=== PATIENT | male | born 1940 | race Caucasian/White ===

== ENCOUNTER 2018-08-22 09:56 | Emergency (ER) | payer MEDICARE ==
[2018-08-22] MEDS ORDERED: Aspirin Chewable 81 MG TAB ONE (10:27)
[2018-08-22 10:35] LABS: #Basophils 0.1 thou/uL (0.0-0.2); #Eosinphils 0.1 thou/uL (0.0-0.7); #Lymphocytes 1.2 thou/uL (1.20-3.40); #Monocytes 0.6 thou/uL (0.11-0.59); #Neutrophils 5.7 thou/uL (1.40-6.50); %Basophils 1.8 % (0.0-1.0); %Eosinophils 1.2 % (0.0-10.0); %Lymphocytes 15.2 % (21.0-51.0); %Monocytes 7.6 % (0.0-10.0); %Neutrophils 74.2 % (42.0-75.0); Mean Corpuscular Hemoglobin 30.3 pg (27.0-31.0); Mean Corpuscular Volume 94.7 fL (78.0-98.0); Mean Platelet Volume 9.3 fL (7.4-10.4); Platelet Count 162 thou/uL (130-400); RBC Distribution Width 12.5 % (11.5-14.5); White Blood Cell (WBC) Count 7.7 thou/uL (4.8-10.8)
[2018-08-22 10:49] LABS: ALT (SGPT) 19 U/L (8-55); AST (SGOT) 26 U/L (5-34); Albumin 4.1 g/dL (3.4-4.8); Alkaline Phosphatase 61 U/L (40-150); Anion Gap 16 mmol/L (10-20); BUN (Urea Nitrogen) 11 mg/dL (8.4-25.7); Bilirubin, Total 0.9 mg/dL (0.2-1.2); Calc. Creatinine Clearance 0 mL/min (70-130); Calcium 9.4 mg/dL (7.8-10.44); Carbon Dioxide 22 mmol/L (23-31); Chloride 102 mmol/L (98-107); Estimated GFR-MDRD 69; Globulin 2.9 g/dL (2.4-3.5); Glucose 112 mg/dL (83-110); Potassium 4.3 mmol/L (3.5-5.1); Sodium 136 mmol/L (136-145)
--- NOTE | 2018-08-22 10:56 | RAD ---
EXAM: CHEST ONE VIEW: History: Difficulty breathing. Cough and congestion. Comparison: 03-16-15 FINDINGS: Post underlying sternotomy with stable cardiomegaly and left ICD. Mild bilateral vascular congestion with small bilateral pleural effusions. No confluent lobar pneumonia. Healed right rib fractures. IMPRESSION: Small bilateral pleural effusions. Mild vascular congestion. Stable cardiopulmonary. No confluent pne umonia. POS: [facility]
[2018-08-22 11:17] LABS: CKMB 2.4 ng/mL (0-6.6)
[2018-08-22] MEDS ORDERED: Furosemide 40 MG/4 ML VIAL ONE ×2 (11:38→11:39)
== END 2018-08-22 13:13 | disposition short-term general hospital (02) ==
LOC: NAV ERS 09:56
DX: I11.0 Hypertensive heart disease with heart failure (principal); I50.9 Heart failure, unspecified; R79.89 Other specified abnormal findings of blood chemistry; F17.210 Nicotine dependence, cigarettes, uncomplicated
CPT/HCPCS: 71045; 80053; 82553; 83880; 84484; 85025; 93005; 96374; J1940; J7620

== ENCOUNTER 2020-01-06 23:02 | Emergency (ER) | payer MEDICARE ==
[2020-01-07] MEDS ORDERED: Tamsulosin HCl 0.4 MG CAP ONE (00:04)
== END 2020-01-07 00:25 | disposition home or self-care (01) ==
LOC: NAV ERS 23:02
DX: R33.9 Retention of urine, unspecified (principal); I11.0 Hypertensive heart disease with heart failure; I50.9 Heart failure, unspecified; I25.2 Old myocardial infarction; F17.210 Nicotine dependence, cigarettes, uncomplicated
CPT/HCPCS: 51703; 51798

== ENCOUNTER 2020-09-17 09:27 | Emergency (ER) | payer MEDICARE ==
[2020-09-17 10:31] LABS: #Basophils 0.1 thou/uL (0.0-0.2); #Eosinphils 0.1 thou/uL (0.0-0.7); #Lymphocytes 0.6 thou/uL (1.20-3.40); #Monocytes 1.1 thou/uL (0.11-0.59); %Basophils 0.7 % (0.0-1.0); %Eosinophils 0.5 % (0.0-10.0); %Lymphocytes 4.9 % (21.0-51.0); %Monocytes 8.4 % (0.0-10.0); %Neutrophils 85.5 % (42.0-75.0); Hemoglobin 16.3 g/dL (14.0-18.0); Mean Corpuscular HGB CONC 32.9 g/dL (32.0-36.0); Mean Corpuscular Hemoglobin 30.3 pg (27.0-31.0); Mean Platelet Volume 6.8 fL (7.4-10.4); Platelet Count 186 thou/uL (130-400); RBC Distribution Width 12.1 % (11.5-14.5); White Blood Cell (WBC) Count 12.8 thou/uL (4.8-10.8)
[2020-09-17] MEDS ORDERED: Sodium Chloride 0.9% 500 ML ONE ×2 (10:44→12:55)
[2020-09-17 10:51] LABS: ALT (SGPT) 12 U/L (8-55); AST (SGOT) 20 U/L (5-34); Albumin 3.7 g/dL (3.4-4.8); Alkaline Phosphatase 60 U/L (40-110); Anion Gap 20 mmol/L (10-20); BUN (Urea Nitrogen) 39 mg/dL (8.4-25.7); Bilirubin, Total 0.8 mg/dL (0.2-1.2); Calc. Creatinine Clearance 0 mL/min (70-130); Calcium 8.3 mg/dL (7.8-10.44); Carbon Dioxide 22 mmol/L (23-31); Chloride 93 mmol/L (98-107); Globulin 2.8 g/dL (2.4-3.5); Glucose 90 mg/dL (83-110); Lipase 20 U/L (8-78); Potassium 5.1 mmol/L (3.5-5.1); Protein, Total 6.5 g/dL (5.8-8.1); Sodium 130 mmol/L (136-145)
--- NOTE | 2020-09-17 11:32 | CT ---
CT Abdomen Pelvis WO Con 09/17/2020 10:55 AM HISTORY: Constipation and abdominal pain for 4 days. COMPARISON: 08/24/2018 Technique: Multiple contiguous axial CT images are obtained through the abdomen and pelvis without IV contrast. Coronal reformats are provided. FINDINGS: This examination is limited for the evaluation of solid organs and vascular structures due to the lac k of intravenous contrast. Lower Chest: Partial visualization of AICD leads. Minimal linear scarring versus atelectasis is prese nt at each lung base. Bilateral pleural effusions and parenchymal lung changes seen on prior study have resolved. Liver: Grossly normal non-enhanced CT appearance. Gallbladder: Within normal limits for CT imaging. Pancreas: Grossly normal nonenhanced CT appearance. Spleen: Grossly normal nonenhanced CT appearance. Adrenals: Grossly normal nonenhanced CT appearance. Kidneys and ureters: Hypodense bilateral renal lesions are again seen likely related to bilateral kd al cysts. There is mild hydronephrosis and hydroureter. No renal or ureteral calculus is seen. Cortically based calcifications are seen at the anterior aspect midportion right kidney. Urinary bladder: Urinary bladder is prominently distended which may account for mild bilateral hydron ephrosis and hydroureter. Previous study demonstrated diffuse urinary bladder wall thickening which is no longer visualized, and the Bonilla catheter has been removed. Reproductive Organs: Prostate gland is borderline increased in size measuring 5 cm in transverse dime nsions. There is a masslike density extending into the base the urinary bladder which has similar density to the prostate gland and likely represents nodular prominence of the prostate gland with mas s effect on the base urinary bladder. This finding was also present on prior exam and also seen on a CT pelvis on 12/13/2007. Lymph Nodes: No enlarged lymph nodes are seen by CT size criteria. Bowel: Normal caliber. Small hiatal hernia is present. Appendix: The appendix is normal in caliber. Peritoneum: No free fluid, free air, or fluid collection. Retroperitoneum: within normal limits. Vessels: Dense vascular calcifications are seen in the abdominal aorta and involving the iliac arteri es. There is mild focal aneurysmal dilatation of the infrarenal abdominal aorta measuring 3 cm in greatest transverse dimension. Abdominal Wall: within normal limits. Bones: Multilevel degenerative changes in the spine. No suspicious lytic or sclerotic osseous lesions are identified. IMPRESSION: 1. Mild bilateral hydronephrosis and hydroureter likely secondary to distention of the urinary bladde r. Urinary bladder extends to superior aspect of the L4 vertebral body and the level of the umbilicus. 2. Borderline enlargement of the prostate gland with a lobular masslike prominence of the prostate gl and extending into the base of the urinary bladder which was also seen on prior studies on 08/24/[address] pelvis on 12/13/2007. 3. Dense vascular calcifications. 4. Loops of small bowel are normal in caliber without evidence of a bowel obstruction. 5. Small hiatal hernia. 6. 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
[2020-09-17 13:14] LABS: Bilirubin Negative (Negative); Blood, Urine Moderate (Negative); Glucose, Urine (Dipstick) Negative (Negative); Ketone, Urine Negative (Negative); Leukocyte Negative (Negative); Nitrite Negative (Negative); Protein, Urine (Dipstick) Negative (Neg-Trace); Urobilinogen 0.2 mg/dL (Less than 2)
[2020-09-17 13:22] LABS: Clarity SL HAZY (Clear); Squamous Epithelial 0-3 HPF (0-3); WBC/HPF 0-3 HPF (0-3)
[2020-09-17 13:55] LABS: Lactic Acid 1.6 mmol/L (0.5-2.2)
== END 2020-09-17 15:09 | disposition short-term general hospital (02) ==
LOC: NAV ERS 09:27
DX: N17.9 Acute kidney failure, unspecified (principal); N32.0 Bladder-neck obstruction; R19.7 Diarrhea, unspecified; N40.0 Benign prostatic hyperplasia without lower urinary tract symptoms; R74.01 Elevation of levels of liver transaminase levels; I11.0 Hypertensive heart disease with heart failure; I50.9 Heart failure, unspecified; I25.2 Old myocardial infarction; F17.210 Nicotine dependence, cigarettes, uncomplicated; Z79.82 Long term (current) use of aspirin; Z79.899 Other long term (current) drug therapy
CPT/HCPCS: 51702; 74176; 80053; 81003; 81015; 83605; 83690; 85025; 94760; J7030

== ENCOUNTER 2020-11-12 17:03 | Emergency (ER) | payer MEDICARE | END 2020-11-12 17:49 | disposition home or self-care (01) | LOC: NAV ERS 17:03 | DX: T83.091A Other mechanical complication of indwelling urethral catheter, initial encounter (principal); I11.0 Hypertensive heart disease with heart failure; I50.9 Heart failure, unspecified; I25.2 Old myocardial infarction; F17.210 Nicotine dependence, cigarettes, uncomplicated; Z85.9 Personal history of malignant neoplasm, unspecified; Z79.82 Long term (current) use of aspirin; Z79.899 Other long term (current) drug therapy | CPT/HCPCS: 99283 ==

== ENCOUNTER 2021-03-08 09:02 | Emergency (ER) | payer MEDICARE | END 2021-03-08 10:20 | disposition home or self-care (01) | LOC: NAV ERS 09:02 | DX: T83.011A Breakdown (mechanical) of indwelling urethral catheter, initial encounter (principal); F17.210 Nicotine dependence, cigarettes, uncomplicated; I50.9 Heart failure, unspecified; I25.2 Old myocardial infarction; I11.0 Hypertensive heart disease with heart failure; Z79.82 Long term (current) use of aspirin; Z79.899 Other long term (current) drug therapy | CPT/HCPCS: 99283 ==

== ENCOUNTER 2021-03-27 12:44 | Emergency (ER) | payer MEDICARE ==
[2021-03-27 13:40] LABS: Clarity Cloudy (Clear); Glucose, Urine (Dipstick) Negative (Negative); Ketone, Urine Trace mg/dL (Negative); Leukocyte Moderate (Negative); Nitrite Negative (Negative); Protein, Urine (Dipstick) 100 mg/dL (Neg-Trace); Specific Gravity, Urine 1.025 (1.005-1.030); pH, Urine 6.5 (5.0-9.0)
[2021-03-27 13:41] LABS: Bilirubin Negative (Negative); Blood, Urine Large (Negative); Urobilinogen 0.2 mg/dL (Less than 2)
[2021-03-27 13:44] LABS: WBC/HPF Greater Than 50 HPF (0-3)
[2021-03-27 13:47] LABS: Bacteria/HPF 4+ HPF (None Seen); Mucous/LPF 1+ LPF (<2+)
== END 2021-03-27 15:25 | disposition home or self-care (01) ==
LOC: NAV ERS 12:44
DX: T83.098A Other mechanical complication of other urinary catheter, initial encounter (principal); R31.9 Hematuria, unspecified; I25.2 Old myocardial infarction; I11.0 Hypertensive heart disease with heart failure; I50.9 Heart failure, unspecified; F17.210 Nicotine dependence, cigarettes, uncomplicated; Z79.899 Other long term (current) drug therapy; Z79.82 Long term (current) use of aspirin
CPT/HCPCS: 51702; 81003; 81015; 87077; 87086; 87186